=== PATIENT | female | born 1955 | race Caucasian/White ===

== ENCOUNTER 2019-04-25 05:38 | Day surgery (SDC) | payer BC, OTHER ==
[~2019-04-25] VITALS: Ht 157.5 cm; Wt 85.7 kg
[~2019-04-25 05:38] MED LIST: ACCUNEB SO1.25 MG/1 INH; ALBUTEROL2.5 MG/31 INH; ALLERGY10 MG PO; ASMANEX220 MC1 INH; CENTRUM SILVER1 EAC4 PO; COZAAR 25 MG TA25 M2 PO; HAIR, SKIN & N1 EAC2 PO; METOPROLOL SUCC50 MG PO; MOBIC7.5 MG PO; OMEPRAZOLE40 MG PO; PENNSAID112 GM TOP
[2019-04-25 12:05] LABS: HEMATOCRIT 44.9 % (37.0-47.0); HEMOGLOBIN 15.3 gm/dL (12.0-15.0)
[2019-04-25 12:18] LABS: CREATININE 0.8 mg/dL (0.6-1.0); POTASSIUM 3.7 mmol/L (3.5-5.1)
[2019-04-25 12:22] LABS: PHOSPHORUS 3.8 mg/dL (2.5-4.9)
[2019-04-25 12:48] VITALS: BP 175/95
[2019-04-25 12:51] LABS: DIRECT BILIRUBIN 0.1 mg/dL (<0.1-0.3); TOTAL BILIRUBIN 0.7 mg/dL (<0.1-1.0); TOTAL PROTEIN 7.9 g/dL (6.4-8.2)
--- NOTE | 2019-04-25 15:02 | EKG ---
[place] [address] [facility] [facility] 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: ERICKA : 1955 Requested By: Harry Watts Order Number: [id number] MD: Chencho Recio Measurements Intervals [place] Rate: 67 P: 30 NH: 173 QRS: -20 QRSD: 91 T: 10 QT: 446 QTc: 471 Interpretive Statements Sinus rhythm Abnormal R-wave progression, late transition Left ventricular hypertrophy Compared to ECG 11/13/1998 15:40:00 Left ventricular hypertrophy now present Electronically Signed On 04-25-2019 15:02:35 CDT by Chencho Recio [email or web address] ��������������������������������������������� <ELECTRONICALLY SIGNED> ���������������������������������������� By: Chencho Recio MD ��������������������������������������������� 04/25/19 1502 15 15 Chencoh Recio MD /ELIZABETH
--- NOTE | 2019-04-25 19:50 | NUR ---
Received pt from post op under observation care. Small 4 incision sites covered and dry. Pt refused tray tried crackers, soda nad jelly. Pt feels a bit nauseated. Pt is able to stand and transfer from the bed to the commode with 1 assists. IV fluids started, POC followed
[2019-04-25 20:40] VITALS: BP 152/92
[2019-04-26 04:45] VITALS: BP 157/93
[2019-04-26 07:35] VITALS: BP 159/92
--- NOTE | 2019-04-26 08:02 | NUR ---
Assumed care at 1845. Pt resting in bed. 4 lap sites covered and dry. VSS. AOX4. Denies N/V. Was able to eat jelly and drink water. New onset [place]. Gave pain medication once. No identified needs at the moment. Will continue to monitor.
--- NOTE | 2019-04-26 11:26 | H ---
[facility] [place] [address] HISTORY AND PHYSICAL Name: SANDEEP POLLOCK Room #: 462-P [facility] M.R.#: [id number] Admission: 04/25/19 ������������������ Attend Phys: Harry Watts MD Discharge: ������������������ Date of : [birth year] Report #: [id number] THIS REPORT FOR: //name// CC: Harry Conte DATE OF SERVICE: 04/25/2019 PREOPERATIVE DIAGNOSIS: Acalculous cholecystitis and biliary dyskinesia. PATIENT HISTORY: The patient is a 63-year-old who is here for treatment of gallbladder disease. The patient has had difficulties for several years. Last month, her symptoms gotten worse. The patient is complaining of squeezing type pain located in the right mid back, which moves to the right upper quadrant under the ribs. This is triggered by eating greasy or spicy food. The pain comes on a few hours after eating. The pain usually lasts for a few hours. The patient does have associated nausea and feels like she wants to vomit. The patient does complain of bloating and increased gas. Her daughter had her gallbladder removed by me when she was 27 or 28 years old. The patient recently had a repeat ultrasound, which did not show any stones and the gallbladder had a normal appearance. In the past, the patient either in 2013 or 2016, the patient had similar workup for gallbladder. The patient did not have any stones back then. The patient did have a PIPIDA scan performed. She said the gallbladder ejection fraction was normal, but she did have reproduction of pain with the PIPIDA scan that caused the pain that she is experiencing. The patient has had an EGD and colonoscopy in the past. I do not think she needs to have that repeated. The patient's symptoms are pretty classic of gallbladder disease. She is recommended to have gallbladder removed. PAST MEDICAL HISTORY: The patient has a history of asthma, hyperlipidemia and high blood pressure. MEDICATIONS: Claritin, Toprol-XL, Proventil inhaler, Cozaar, Meloxicam, Asmanex and Prilosec. ALLERGIES: SHE IS ALLERGIC TO COMPAZINE, MORPHINE, LATEX AND LISINOPRIL.. PAST SURGICAL HISTORY: The patient has had three C-sections, left knee surgery in 2016, hysterectomy in 1993, had early cancer of the uterus. FAMILY HISTORY: Mother had heart problems and cancer. Father had heart attack. There is asthma that runs in the family. 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 The patient never smokes. She does not drink alcohol. [facility] [address] [place] [address] HISTORY AND PHYSICAL Name: SANDEEP POLLOCK Room #: 462-P [facility] M.R.#: [id number] Admission: 04/25/19 ������������������ Attend Phys: Harry Watts MD Discharge: ������������������ Date of : 59 Report #: [id number] REVIEW OF SYSTEMS: No chest pain, shortness of breath or palpitation. No muscle weakness or numbness. PHYSICAL EXAMINATION: GENERAL: The patient is an elderly female in no acute distress. HEENT: Pupils react to light. Extraocular muscles are intact. Sclerae is nonicteric. NECK: Soft and supple, no masses, no JVD. LUNGS: Clear to auscultation. HEART: Regular rate and rhythm. No murmur or gallop. Normal S1 and S2. ABDOMEN: She does have slight tenderness in the right upper quadrant. No mass, guarding, rigidity or rebound. EXTREMITIES: No cyanosis, clubbing or edema. Sensation and motor function is intact. IMPRESSION: The patient is a 63-year-old with pain for many years. She did have a previous workup for gallbladder type symptoms back in 2013 or 2016. She then had a repeat ultrasound in March. No gallstone. PIPIDA scan did reproduce her pain back in 2013 or 2016. She did have a colonoscopy and EGD before. I think her symptoms are pretty classic gallbladder disease. There is a family history of gallbladder disease with her daughter. I do not think she has stones either. The patient is recommended to have her gallbladder removed. The laparoscopic cholecystectomy procedure is discussed in detail. Risk of bleeding, infection, common bile duct injury, bile leak was discussed. The patient understands the procedure in the recovery course. The patient wishes to proceed. ��������������������������������������������� <ELECTRONICALLY SIGNED> ���������������������������������������� By: Harry Watts MD ��������������������������������������������� 04/26/19 1126 1058 1134 Harry Watts MD /nt
--- NOTE | 2019-04-26 11:26 | O ---
[facility] [place] [address] OPERATIVE REPORT Name: SANDEEP POLLOCK Room #: 462-P [facility] M.R.#: [id number] Admission: 04/25/19 ������������������ Attend Phys: Harry Watts MD Discharge: ������������������ Date of : 59 Report #: [id number] THIS REPORT FOR: //name// CC: Harry Conte MD DATE OF SERVICE: 04/25/2019 PREOPERATIVE DIAGNOSIS: Acalculous cholecystitis. POSTOPERATIVE DIAGNOSIS: Acalculous cholecystitis. PROCEDURES PERFORMED: Laparoscopic cholecystectomy with cholangiogram. SURGEON: Harry Watts M.D. ANESTHESIA: General anesthesia. COMPLICATIONS: None. ESTIMATED BLOOD LOSS: 5 mL. DESCRIPTION OF PROCEDURE: With the patient under general anesthesia, IV antibiotic was administered. Abdomen was prepped and draped in sterile fashion. A timeout was performed. A 0.25% Marcaine was used to anesthetize skin and subcutaneous tissue at the upper edge of the umbilicus. A 2 cm curved incision was made along the edge of the umbilicus superiorly. After incising through the skin, subcutaneous tissue, fascia identified. Fascia was grasped with hemostat. Fascia was then opened under visualization, 0 Vicryl suture placed on the fascia for retraction. With the fascia lifted anteriorly, Veress needle was then placed through the peritoneum. Abdominal cavity was insufflated with CO2. The pneumoperitoneum was established without difficulty. Once a pneumoperitoneum was established, an 11 mm trocar was placed under visualization into the pneumoperitoneum, no harm to underlying tissue. There is no scar in this area. The patient did have an infraumbilical laparoscopic port site. Two 5 mm trocars were placed in the right upper quadrant, another 5 mm trocar was placed in right epigastrium. The patient was placed in a reverse Trendelenburg, right side tilted up. The gallbladder did have adhesions covering it. This lesion is lateral part of the gallbladder, this was taken down. The gallbladder was lifted over the liver. The proximal part of the gallbladder was identified. The fatty tissue over the cystic duct was dissected free without difficulty. No significant scarring in this area. Cystic duct was isolated, the cystic artery was also isolated. A clip was placed in junction of cystic duct to the gallbladder, opening was made in the cystic duct. Cholangiogram catheter was placed. I was only able to get the tip of the catheter in and this catheter was [facility] [address] [place] [address] OPERATIVE REPORT Name: SANDEEP POLLOCK MATT Room #: 462-P [facility] M.R.#: [id number] Admission: 04/25/19 ������������������ Attend Phys: Harry Watts MD Discharge: ������������������ Date of : 59 Report #: [id number] held with a clip. Fluoroscopic cholangiogram was obtained. I was able to inject contrast through the catheter tip and filled the cystic duct and then the common duct. There is dye extravasation at the cannulation site. So there is not as good of a filling in the main bile duct. There were no filling defects seen and the catheter identified in the cystic duct. The catheter was then removed. The proximal cystic duct was then clipped x 2 and then divided. The artery was then isolated, clipped x 2 proximally and 1 distally and then divided. Gallbladder was free from the liver bed without difficulty. The gallbladder was then removed through the 11 mm trocar site. The gallbladder was then eventually opened off the field. There is cholesterolosis identified. Liver bed was checked, hemostasis obtained. The clip on the cystic duct and artery were intact. No bleeding, no bile was seen. Irrigation was aspirated out. Trocars were then removed. CO2 was evacuated as much as possible. The fascia defect at the 11 mm trocar site was closed with [id number] 0 Vicryl x 2. Skin was irrigated. Skin was then closed with 5-0 PDS. Steri-Strip, Band-Aids applied. The patient tolerated the procedure well. ��������������������������������������������� <ELECTRONICALLY SIGNED> ���������������������������������������� By: Harry Watts MD ��������������������������������������������� 04/26/19 1126 2142 2205 Harry Watts MD /nt
[2019-04-26] MEDS ORDERED: HYDROCODON-ACE1 EAC7 PO (11:47)
[2019-04-26 13:09] VITALS: BP 159/92
--- NOTE | 2019-04-26 16:51 | NUR ---
Assumed pt care this am, pt tolerated diet and medication well, no nausea or vomiting was noted. Pt is able to ambulate from bed to toilet and took a partial bath. No signs of dristress noted. Surgical sites dry and intact. POC follwed. Prescriptions we with the pt from post op, dc instructions given. Pt was picked up by her . pt now dc
--- NOTE | 2019-04-28 17:05 | PATH ---
[facility] [address] [place] [address] PATHOLOGY RPT PROCEDURE Name: SANDEEP POLLOCK Room #: DEP [facility] M.R.#: [id number] ������������������ Admission: 04/25/19 ������������������ Date of : 59 Discharge: 04/26/19 Report #: [id number] Path Case #: [id number] [facility] Accession Number: [id number] . 01 Material submitted: . gallbladder - GALLBLADDER . 01 Clinician provided ICD-10: y . 01 Clinical history: . Cholecystitis . 02 Diagnosis: Gallbladder, cholecystectomy: - Mild chronic cholecystititis. - Incidental reactive lymph node. (IUV:joshua; 04/28/2019) QMS/04/28/2019 . 02 Electronically signed: . Sana Hogan MD, Pathologist NPI- [id number] . 01 Gross description: . The specimen is received in formalin, labeled "Julo, Debra, gallbladder", is a previously opened gallbladder measuring 6.1 cm in length and 2.5 cm in maximum diameter with abundant yellow lobulated adipose tissue. A 0.7 x 0.5 x 0.2 cm soft lymph node is identified in the region of the gallbladder neck. The cystic duct is patent. The mucosa is hagen-brown with no cholesterolosis. The wall is 0.1 cm in average thickness. No discrete calculi are identified. Seismology Technical Officer tissue is submitted in A1. ([facility]; 04/25/2019) SHS/ . 02 Pathologist provided ICD-10: K81.1 . 02 CPT . 981129 Specimen Comment: A courtesy copy of this report has been sent to Specimen Comment: [phone], . Specimen Comment: Report sent to and Performed at: [address] [id number] [address] [address] PATHOLOGY RPT PROCEDURE Name: SANDEEP POLLOCK MATT Room #: DEP [facility] Nik#: [id number] ������������������ Admission: 04/25/19 ������������������ Date of : 59 Discharge: 04/26/19 Report #: [id number] Path Case #: [id number] MD Cosme Reyes MD Phone: [phone] Performed at: [address] [id number] MD Sana Hogan MD Phone: [phone]
== END 2019-04-26 14:30 | disposition home or self-care (01) ==
LOC: TBA 05:38 → OR 05:38 → TBA 05:39 → OR 11:22 → 4W 17:28 → OR 04-26 14:30
PROVIDERS: Surgery
DX: K81.9 Cholecystitis, unspecified (principal); I10 Essential (primary) hypertension; E78.5 Hyperlipidemia, unspecified; J45.909 Unspecified asthma, uncomplicated; K21.9 Gastro-esophageal reflux disease without esophagitis; Z91.040 Latex allergy status; Z88.8 Allergy status to other drugs, medicaments and biological substances; Z79.899 Other long term (current) drug therapy; Z82.49 Family history of ischemic heart disease and other diseases of the circulatory system; Z82.5 Family history of asthma and other chronic lower respiratory diseases; Z96.652 Presence of left artificial knee joint; Z90.710 Acquired absence of both cervix and uterus; Z85.42 Personal history of malignant neoplasm of other parts of uterus
CPT/HCPCS: 10047; 50010; 50101; 50411; 50555; 50558; 51489; 53307; 53310; 55245; 55317; 56462; 56525; 56526; 62110; 62900; 70005